=== PATIENT | female | born 1945 | race Caucasian/White ===

== ENCOUNTER 2017-08-25 10:52 | Day surgery (SDC) | payer MEDICARE, OTHER ==
--- NOTE | 2017-08-25 08:02 | HP ---
DATE OF SURGERY: 08/25/2017 HISTORY OF PRESENT ILLNESS: The patient is a 72 year-old with left arm lesion change in color in pigmentation and also nonhealing lesion left leg, as well as right arm with intermittent peeling, left arm lesion, back lesion. PAST MEDICAL HISTORY: Mitral valvular prolapse, hypertension, hypercholesterolemia, reflux. PAST SURGICAL HISTORY: section. Appendectomy. Complete hysterectomy in the past. MEDICATIONS: Atorvastatin, olmesartan, famotidine, metoprolol, aspirin, vitamin B12, vitamin E, multivitamin, calcium, probiotic. ALLERGIES: NKDA. PAST SURGICAL HISTORY: FAMILY HISTORY: Negative. SOCIAL HISTORY: Denies smoking. She reports occasional alcohol use denies abuse. REVIEW OF SYSTEMS: Twelve systems reviewed per admission assessment. No chest pain or palpitations other systems negative or noncontributory as above and per preadmission questionnaire. PHYSICAL EXAMINATION: GENERAL: No acute distress. HEENT: Sclerae nonicteric. NECK: No JVD. CHEST: Equal excursion, nonlabored breathing. CVS: Regular rate and rhythm. ABDOMEN: Soft, nontender. No peritoneal signs. BACK/EXTREMITIES: No significant edema. Nonhealing lesions left arm, left leg, right arm and back lesions in need of excision. Otherwise no cyanosis. NEURO: Alert, moving extremities grossly symmetrically. No gross motor deficits noted. IMPRESSION: Nonhealing lesions left arm, left leg, right arm, back in need of excision for definitive path and treatment. Risks and benefits explained in detail including but not limited to bleeding or infection, risk of wound complications or dehiscence possibly requiring packing, risk of involved margins with carcinoma requiring other procedures or wider excision, general risk of anesthesia, deep venous thrombosis, pulmonary embolism, pneumonia but not limited to. She understands and agrees to the planned procedure and will proceed with as mentioned above as an outpatient.
[~2017-08-25 10:52] MED LIST: Lactated Ringers 1,000 ML IV ONE; Sensorcaine 0.25% 10 ML ONE
[2017-08-25] MEDS ORDERED: SUBLIMAZE 100 MCG/2 ML IV ONE (10:53)
[2017-08-25] MEDS ORDERED: CEFAZOLIN 2 GM-D5W BAG** 2 GM/50 ML ML IV ONE (10:53)
[2017-08-25] MEDS ORDERED: Decadron 4 MG INJ IV ONE (10:53)
[2017-08-25] MEDS ORDERED: Zofran 4 MG/2 ML VIAL IV ONE (10:53)
[2017-08-25] MEDS ORDERED: DIPRIVAN 200 MG/20 ML IV ONE (10:53)
[2017-08-25] MEDS ORDERED: Lactated Ringers 1,000 ML IV SCH (11:30)
[2017-08-25] MEDS ORDERED: SUBLIMAZE 100 MCG/2 ML ONE (15:19)
--- NOTE | 2017-08-25 15:37 | OP ---
SURGERY DATE/TIME: 08/25/2017 9183 PREOPERATIVE DIAGNOSIS: Enlarging nonhealing changing pigment lesions back, right upper extremity x2 lesions, left upper extremity, left lower extremity. Problems with intermittent peeling and bleeding of the arm and back lesion, changing pigment on the lower back lesion. POSTOPERATIVE DIAGNOSIS: Enlarging nonhealing changing pigment lesions back, right upper extremity x2 lesions, left upper extremity, left lower extremity. Problems with intermittent peeling and bleeding of the arm and back lesion, changing pigment on the lower back lesion. Lesions of indeterminate significance path pending. PROCEDURES: 1) Excisional biopsy of nonhealing changing pigment back lesion (approximately 1 cm with margins). 2) Excisional biopsy of left upper extremity nonhealing lesion (approximately 1.5 cm with margins) with intermediate closure. 3) Excisional biopsy of left lower extremity nonhealing lesion (approximately 1 cm with margins) with intermediate closure. 4) Excisional biopsy of right upper forearm nonhealing lesion (approximately 1.5 cm with margins) with intermediate closure. 5) Excisional biopsy of right upper extremity lower forearm nonhealing lesion (approximately 1.2 cm with margins) with intermediate closure. SURGEON: Dr. Kenny Mercado. ANESTHESIA: General. 0.25% Marcaine local. ESTIMATED BLOOD LOSS: Minimal. INDICATIONS: As noted above. Risks and benefits explained in detail and not limited to and consent obtained. DESCRIPTION OF PROCEDURE AND FINDINGS: The patient is taken to the operating room after first confirming the sites with the patient in the preoperative holding area, previously marked with staff and the patient. I then reconfirmed the locations and marked them. It should be noted the back was changing pigment lesion in the lower mid back. She had other benign appearing moles up higher as well as the right upper extremity x2, left lower extremity x1, left lower extremity x1. These were marked and confirmed in the holding area. The patient is taken to the operating room. General anesthesia introduced. Starting first in the lateral position, appropriate padding and positioning per anesthesia and OR staff. Her back and left forearm were prepped and draped in usual sterile fashion. After official time out and no disagreement with planned procedure starting first at the left forearm marking out to normal appearing skin on either side of this nonhealing, peeling lesion. Dissection is carried down circumferentially around this resulting in about 1.5 cm with margins about 3 cm long spindle-shaped excision. Dissection carried down to normal appearing subcutaneous tissue. The specimen is passed off. Hemostasis controlled with brief bursts of pin point cautery. The wound was then closed with interrupted 3-0 Vicryl closing the deep superficial subcu. Skin closed with 4-0 Vicryl running subcuticular fashion. Steri-Strips and sterile dressing applied. 0.25% Marcaine local injected along. Attention is then turned to the changing pigment lower mid back lesion this was marked out with marking pen to normal appearing skin around this and in spindle-shaped fashion. Dissection carried down to normal appearing subcutaneous tissue beneath this was about 1 cm with margins and the specimen was 2.5 cm long spindle-shaped excision. Dissection carried down to normal appearing subcutaneous tissue. The specimen is passed off. Hemostasis controlled with brief bursts of cautery. The superficial subcu closed with 3-0 Vicryl. Skin closed with 4-0 Vicryl given the location on the back with some interrupted 3-0 Prolene used to reinforce the area. Steri-Strips and sterile dressing applied. At this point the patient dressings placed. Then she was repositioned in supine position. I then scrubbed back in after prepping and draping again. Starting first at the left lower leg raised intermittent itching, irritated nonhealing lesion. Dissection carried circumferentially down to normal appearing skin this was about 1 cm with margins about 2 to 2.5 cm long spindle-shaped excision pattern dissection carried down to normal appearing subcutaneous tissue. The specimen passed off. Hemostasis controlled with pinpoint cautery. The wound then closed with interrupted 3-0 Vicryl the deep superficial subcu, skin closed with 4-0 Vicryl, Steri-Strips and sterile dressing applied. The patient tolerated the procedure well. There were no immediate complications. Attention is then turned to the upper right forearm nonhealing lesion. Marking out to normal appearing skin around this. She had several skin changes around there but the area in question had intermittent peeling and nonhealing marking out to normal appearing skin that she had available on either side of this. In spindle-shaped fashion this resulted in 1.5 cm specimen with margins. About a 3 cm or so long spindle-shaped excision pattern. Dissection carried down to normal appearing subcutaneous tissue beneath. The specimen is passed off. Hemostasis controlled with some pinpoint cautery. The flaps were mobilized back towards the midline with interrupted 3-0 Vicryl in the deep and superficial subcu. Skin closed with 4-0 Vicryl. Steri-Strips and sterile dressing applied. 0.25% Marcaine local injected along this also. Attention is then turned to the final lesion in the lower right forearm. Marking out to normal appearing skin around this area. Dissection carried down to normal appearing subcutaneous tissue this resulted in about a 1.2 cm specimen with margins with about 2 to 2.5 cm long spindle-shaped excision pattern. Dissection carried down to normal appearing subcutaneous tissue and the specimen is passed off. Hemostasis controlled with some brief bursts of cautery. Good hemostasis noted. Then back towards the midline interrupted 3-0 Vicryl closed deep and superficial subcu, skin closed with 4-0 Vicryl, Steri-Strips and sterile dressing applied. 0.25% Marcaine injected along this as well. The patient tolerated the procedure well. She was transferred to the recovery room in stable condition. There were no immediate complications. Findings discussed with the family out in the waiting area.
[2017-08-25 16:28] VITALS: BP 149/58; PULSE 74; O2SAT 96
== END 2017-08-25 16:45 | disposition home or self-care (01) ==
LOC: SDC 10:52
PROVIDERS: ATTEND Surgery
PROC: 0HQLXZZ Repair Left Lower Leg Skin, External Approach (ICD-10-PCS; principal; 2017-08-25)
PROC: 0HQBXZZ Repair Right Upper Arm Skin, External Approach (ICD-10-PCS; 2017-08-25)
PROC: 0HQDXZZ Repair Right Lower Arm Skin, External Approach (ICD-10-PCS; 2017-08-25)
PROC: 0HQ6XZZ Repair Back Skin, External Approach (ICD-10-PCS; 2017-08-25)
PROC: 0HBLXZZ Excision of Left Lower Leg Skin, External Approach (ICD-10-PCS; 2017-08-25)
DX: L98.9 Disorder of the skin and subcutaneous tissue, unspecified (principal)
CPT/HCPCS: 00300; 00400; 36415; 88305; 99100; J0690; J1100; J2405; J2704; J3010